=== PATIENT | female | born 1985 | race Caucasian/White ===

== ENCOUNTER 2022-08-06 00:56 | Emergency (ER) | payer SELFPAY ==
[2022-08-06] MEDS ORDERED: Ketorolac Tromethamine 30 MG/ML VIAL ONE (01:27)
[2022-08-06] MEDS ORDERED: Ondansetron ODT 4 MG TAB ONE (01:28)
[2022-08-06] MEDS ORDERED: Acetaminophen 500 MG TAB ONE (01:28)
[2022-08-06 02:26] LABS: SARS-CoV-2 NAA Rapid Test DETECTED (NotDetected)
== END 2022-08-06 02:35 | disposition home or self-care (01) ==
LOC: CSHERS 00:56
DX: U07.1 COVID-19 (principal); F17.210 Nicotine dependence, cigarettes, uncomplicated
CPT/HCPCS: 96372; 99283; J1885; Q0162